=== PATIENT | female | born 1965 | race African-American/Black ===

== ENCOUNTER 2019-01-04 22:27 | Emergency (ER) | payer MEDICAID ==
[~2019-01-04] VITALS: Ht 165.1 cm; Wt 92.1 kg
--- NOTE | 2019-01-04 22:35 | NUR ---
ED Nurse Note: Patient walked in to ER from home due to blood in the urine x 2 days. VSS at this time. collected pt urine sample.
[2019-01-04 22:39] VITALS: BP 147/95
[2019-01-04 23:05] LABS: APPEARANCE,URINE CLOUDY; BILIRUBIN, URINE NEGATIVE (NEGATIVE); GLUCOSE, URINE (UA) NEGATIVE (NEGATIVE); KETONES,URINE 1+ (NEGATIVE); LEUKOCYTE ESTERASE ,URINE 3+ (NEGATIVE); NITRITE,URINE NEGATIVE (NEGATIVE); PH,URINE 5 (4.5-8.0); PROTEIN,URINE 1+ (NEGATIVE); UROBILINOGEN,URINE NORMAL MG/DL (0.0-1.0)
[2019-01-04 23:06] LABS: COLOR,URINE YELLOW
[2019-01-04] MEDS ORDERED: CEPHALEXIN500 MG ORAL (23:28)
[2019-01-04] MEDS ORDERED: Cephalexin 500mg cap ORAL ONE (23:30)
[2019-01-04] MEDS ORDERED: DIFLUCAN100 MG ORAL (23:43)
[2019-01-04 23:49] VITALS: BP 150/87
--- NOTE | 2019-01-04 23:50 | NUR ---
ER DISCHARGE NOTE: Patient is cleared to be discharged per ERMD, pt is aox4, on room air, with stable vital signs. pt was given dc and prescription instructions, pt was able to verbalize understanding, pt id band removed. pt is able to ambulate with steady gait. pt took all belongings.
--- NOTE | 2019-01-05 05:03 | Emergency Room Report ---
History of Present Illness General Chief Complaint: Female Urogenital Problems Source: Patient Present Illness HPI This is a 53-year-old female presents after increased dysuria as well as urinary frequency. She reports having increased bleeding. She denies any fever. She states she had previous total hysterectomy. She denies any vomiting or chills. She denies any severe flank pain. She reports having onset of symptoms for the past few days gradual onset.She had noticed some increased discoloration when she was wiping. Allergies: Coded Allergies: SULFAMETHOXAZOLE (Verified Allergy, Unknown, 01/04/19) TRIMETHOPRIM (Verified Allergy, Unknown, 01/04/19) Patient History Past Medical History: see triage record Now: No Reviewed Nursing Documentation: PMH: Agreed; PSxH: Agreed Review of Systems All Other Systems: negative except mentioned in HPI Physical Exam Vital Signs Date Time Temp Pulse Resp B/P (MAP) Pulse Ox O2 Delivery O2 Flow Rate FiO2 01/04/19 22:32 98.4 72 20 147/95 (112) 96 Room Air General Appearance: well appearing, no apparent distress, alert, GCS 15 Head: normocephalic, atraumatic ENT: hearing grossly normal, normal voice Neck: full range of motion, supple Respiratory: lungs clear, normal breath sounds, no respiratory distress, speaking full sentences Cardiovascular #1: normal inspection, normal peripheral pulses, regular rate, rhythm, no edema Gastrointestinal: normal inspection, non tender, soft Genitourinary: other - slight vaginal discharge, no cva tenderness Neurologic: normal inspection, alert, oriented x3, responsive, 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 Differential diagnosis included but was not limited to vaginitis, urinary tract infection, kidney stone, urethral prolapse among others. Patient has a benign exam. She has had previous total hysterectomy. Urinalysis appears to show some UTI. Patient will be given oral antibiotics. Patient was advised to follow up with her doctor due to bleeding. She is to return if worse. Labs Test 01/04/19 22:40 Urine Color Yellow Urine Appearance Cloudy Urine pH 5 (4.5-8.0) Urine Specific [place] 1.020 (1.005-1.035) Urine Protein 1+ (NEGATIVE) Urine Glucose (UA) Negative (NEGATIVE) Urine Ketones 1+ (NEGATIVE) Urine Blood 5+ (NEGATIVE) Urine Nitrite Negative (NEGATIVE) Urine Bilirubin Negative (NEGATIVE) Urine Urobilinogen Normal MG/DL (0.0-1.0) Urine Leukocyte Esterase 3+ (NEGATIVE) Urine RBC 15-20 /HPF (0 - 2) Urine WBC Tntc /HPF (0 - 2) Urine Squamous Epithelial Cells Many /LPF (NONE/OCC) Urine Bacteria Few /HPF (NONE) Last Vital Signs Date Time Temp Pulse Resp B/P (MAP) Pulse Ox O2 Delivery O2 Flow Rate FiO2 01/04/19 23:49 98.6 77 18 150/87 99 Room Air Status: improved Disposition: HOME, SELF-CARE Condition: Stable Scripts Fluconazole* (DIFLUCAN*) 100 Mg Tablet 100 MG ORAL DAILY for 1 Day, #1 TAB Prov: Jose A Reynoso MD 01/04/19 Cephalexin* (KEFLEX*) 500 Mg Capsule 500 MG ORAL EVERY 6 HOURS, #28 CAP Prov: Jose A Reynoso MD 01/04/19 Referrals: NON PHYSICIAN (PCP) Patient Instructions: Urinary Tract Infection Additional Instructions: Follow up with your doctor for recheck. Jose A Reynoso MD Jan 05, 2019 05:03
== END 2019-01-04 23:50 | disposition home or self-care (01) ==
LOC: EMR 22:48
DX: N39.0 Urinary tract infection, site not specified (principal); Z88.2 Allergy status to sulfonamides; Z88.8 Allergy status to other drugs, medicaments and biological substances
CPT/HCPCS: 81003; 87086; 87181; 99283

== ENCOUNTER 2019-03-03 19:02 | Emergency (ER) | payer MEDICAID ==
[~2019-03-03] VITALS: Ht 165.1 cm; Wt 93.0 kg
[~2019-03-03 19:02] MED LIST: CEPHALEXIN500 MG ORAL; DIFLUCAN100 MG ORAL
[2019-03-03] MEDS ORDERED: NKM (19:12)
[2019-03-03 19:30] VITALS: BP 150/86
--- NOTE | 2019-03-03 19:30 | NUR ---
ED Nurse Note: Recieved report to resume care, pt sitting in chairs, here from home with c/o sore throat for 3 days, denies fevers, nausea, vomiting, or any other complaints, no cp, no sob, pt waiting to be seen by md, will resume care as ordered and closely montior.
[2019-03-03] MEDS ORDERED: AMOXICILLIN500 MG ORAL (19:43)
--- NOTE | 2019-03-03 19:43 | Emergency Room Report ---
History of Present Illness General Chief Complaint: Sore Throat Source: Patient Present Illness HPI 53-year-old female with no symptom past history is complaining of 3 days of a 10 out of 10 throat and tonsil enlargement. Denies fever and chills, nausea vomiting, cough and congestion. Complains of swollen neck however denies neck stiffness, photophobia, headache, dizziness. Has not taken medication for symptom relief. Is up-to-date with her immunization. Denies chest pain, shortness of breath, palpitation, no other associated symptoms. Allergies: Coded Allergies: SULFAMETHOXAZOLE (Verified Allergy, Unknown, 01/04/19) TRIMETHOPRIM (Verified Allergy, Unknown, 01/04/19) Patient History Past Medical History: see triage record Past Surgical History: unable to obtain Pertinent Family History: none Last Menstrual Period: HYSTERECTOMY 2015 Now: No Immunizations: UTD Reviewed Nursing Documentation: PMH: Agreed; PSxH: Agreed Nursing Documentation-PMH Past Medical History: No Stated History Review of Systems All Other Systems: negative except mentioned in HPI Physical Exam Vital Signs Date Time Temp Pulse Resp B/P (MAP) Pulse Ox O2 Delivery O2 Flow Rate FiO2 03/03/19 19:10 99.1 84 16 150/86 (107) 98 Room Air Sp02 EP Interpretation: reviewed, normal General Appearance: no apparent distress, alert, GCS 15, non-toxic Head: normocephalic, atraumatic Eyes: bilateral eye normal inspection, bilateral eye PERRL ENT: TMs + canals normal, uvula midline, tonsillar swelling, pharyngeal erythema, tonsillar exudate Neck: full range of motion, supple/symm/no masses, other - Anterior cervical lymphadenopathy Respiratory: chest non-tender, lungs clear, normal breath sounds, no wheezing, speaking full sentences Cardiovascular #1: regular rate, rhythm, no edema, no murmur, normal capillary refill Gastrointestinal: normal inspection, normal bowel sounds, non tender, soft, no mass Genitourinary: no CVA tenderness Musculoskeletal: normal inspection, back normal, digits/nails normal Neurologic: alert, oriented x3, responsive, motor strength/tone normal, sensory intact, speech normal Psychiatric: normal inspection, judgement/insight normal Skin: no rash Lymphatic: adenopathy - Anterior cervical Medical Decision Making PA Attestation Diagnosis and treatment plans were reviewed and discussed with my supervising physician Dr. Hernandez Diagnostic Impression: Primary Impression: Tonsillitis with exudate ER Course 53-year-old female with no symptom past history is complaining of 3 days of a 10 out of 10 throat and tonsil enlargement. Denies fever and chills, nausea vomiting, cough and congestion. Complains of swollen neck however denies neck stiffness, photophobia, headache, dizziness. Has not taken medication for symptom relief. Is up-to-date with her immunization. Denies chest pain, shortness of breath, palpitation, no other associated symptoms. Ddx considered but are not limited to: strep pharyngitis, URI, tonsillitis, peritonsillar abscess, influneza Vital signs: are WNL, pt. is afebrile H&PE are most consistent with: Tonsillitis with exudate ORDERS: Amoxicillin ED INTERVENTIONS: None required at this time. DISCHARGE: At this time pt. is stable for d/c to home. Will provide printed patient care instructions, and any necessary prescriptions. Care plan and follow up instructions have been discussed with the patient prior to discharge. Take medication as directed follow-up with primary care provider if worsening symptoms return to the emergency room patient was also given Diflucan as she reports that she gets yeast infection with antibiotics. Advised her to start taking it only if this infection develops. Last Vital Signs Date Time Temp Pulse Resp B/P (MAP) Pulse Ox O2 Delivery O2 Flow Rate FiO2 03/03/19 19:10 99.1 84 16 150/86 (107) 98 Room Air Disposition: HOME, SELF-CARE Condition: Stable Scripts Fluconazole (FLUCONAZOLE) 100 Mg Tablet 150 MG ORAL ONCE for 1 Day, #1 TAB 0 Refills Prov: Whit Jo 03/03/19 Amoxicillin* (AMOXIL*) 500 Mg Capsule 500 MG ORAL EVERY 12 HOURS for 10 Days, #20 CAP Prov: Whit Jo 03/03/19 Patient Instructions: Strep Throat, Tonsillitis Additional Instructions: Take medication as directed follow-up with your primary care provider. Take the Diflucan only if you start having a yeast infection Whit Jo Mar 03, 2019 19:43
[2019-03-03 20:15] VITALS: BP 150/86
[2019-03-03] MEDS ORDERED: FLUCONAZOLE100 MG ORAL (20:15)
--- NOTE | 2019-03-03 20:15 | NUR ---
ER DISCHARGE NOTE: Patient is cleared to be discharged per ERMD, pt is aox4, on room air, with stable vital signs. pt was given dc and prescription instructions, pt was able to verbalize understanding, pt id band removed without complications. pt is able to ambulate with steady gait. pt took all belongings.
== END 2019-03-03 20:15 | disposition home or self-care (01) ==
LOC: EMR 19:44
DX: J03.90 Acute tonsillitis, unspecified (principal); Z90.710 Acquired absence of both cervix and uterus; Z88.1 Allergy status to other antibiotic agents; Z88.2 Allergy status to sulfonamides
CPT/HCPCS: 99282

== ENCOUNTER 2019-03-31 21:17 | Emergency (ER) | payer MEDICAID ==
[~2019-03-31] VITALS: Ht 165.1 cm; Wt 91.6 kg
[~2019-03-31 21:17] MED LIST changes: +AMOXICILLIN500 MG ORAL; +FLUCONAZOLE100 MG ORAL; +NKM
[2019-03-31 21:28] VITALS: BP 150/80
--- NOTE | 2019-03-31 21:29 | NUR ---
ED Nurse Note: PT walked in to ED for C/O redness, swelling, itchiness to right arm since 4 dys ago. area is warm to touch and is hardened. pt stated she has been applying "blue star Ointment" but is ineffective.
[2019-03-31] MEDS ORDERED: DiphenhydrAMINE & Zinc 28g Cream TOPIC ONE (21:45)
[2019-03-31] MEDS ORDERED: Hydrocortisone 2.5% Oint 30gm TOPIC ONE (21:45)
[2019-03-31] MEDS ORDERED: CEPHALEXIN500 M1 ORAL (21:46)
[2019-03-31] MEDS ORDERED: DIFLUCAN200 MG ORAL (21:46)
--- NOTE | 2019-03-31 21:46 | Emergency Room Report ---
History of Present Illness General Chief Complaint: Skin Rash/Abscess Source: Patient Present Illness HPI 53 year old female presents with itchy rash right upper arm, no aggravating or alleviating factors, severity is mild, symptoms started 4 days patient reports that she saw the pharmacist today who told her to come to the ED, she denies any aggravating or relieving factors severity is mild, no fevers no chills, patient presents for evaluation. Allergies: Coded Allergies: SULFAMETHOXAZOLE (Verified Allergy, Unknown, 01/04/19) TRIMETHOPRIM (Verified Allergy, Unknown, 01/04/19) Patient History Past Medical History: see triage record Last Menstrual Period: hysterectomy 2014 Reviewed Nursing Documentation: PMH: Agreed; PSxH: Agreed Review of Systems All Other Systems: negative except mentioned in HPI Physical Exam Vital Signs Date Time Temp Pulse Resp B/P (MAP) Pulse Ox O2 Delivery O2 Flow Rate FiO2 03/31/19 21:19 98.4 65 16 156/80 (105) 97 Room Air General Appearance: well appearing, no apparent distress Head: normocephalic, atraumatic ENT: hearing grossly normal, normal voice Neck: full range of motion, supple Respiratory: no respiratory distress, speaking full sentences Neurologic: alert, normal gait Psychiatric: mood/affect normal Skin: other - Upper arm: 2 urticarial rashes Medical Decision Making Diagnostic Impression: Primary Impression: Urticaria Additional Impression: Insect bite Qualified Codes: S40.861A - Insect bite (nonvenomous) of right upper arm, initial encounter; W57.XXXA - Bitten or stung by nonvenomous insect and other nonvenomous arthropods, initial encounter ER Course 53-year-old female presents most likely with an insect bite, with urticarial reaction, will provide patient with Benadryl cream as well as hydrocortisone cream here in the ED, will provide antibiotics instructed patient only take antibiotics on the second day if no improvement in rash, area was marked with a pen Follow-up with PCP Last Vital Signs Date Time Temp Pulse Resp B/P (MAP) Pulse Ox O2 Delivery O2 Flow Rate FiO2 03/31/19 21:19 98.4 65 16 156/80 (105) 97 Room Air Disposition: HOME, SELF-CARE Condition: Stable Scripts Fluconazole* (DIFLUCAN*) 200 Mg Tablet 200 MG ORAL DAILY, #1 TAB 0 Refills Prov: Panfilo Hernandez MD 03/31/19 Cephalexin* (KEFLEX*) 500 Mg Tablet 500 MG ORAL EVERY 6 HOURS, #28 CAP Prov: Panfilo Hernandez MD 03/31/19 Referrals: [facility] Patient Instructions: Hives, Cdoy-ko-Roxy, Insect Bite, [id number] Additional Instructions: The patient was provided with discharge instructions, notified to follow-up with a primary care doctor and or specialist in the next 24-48 hours, and to return to the ED if they have worsening of their symptoms. Please note that this report is being documented using DRAGON technology. This can lead to erroneous entry secondary to incorrect interpretation by the dictating instrument. Panfilo Hernandez MD Mar 31, 2019 21:46
[2019-03-31 22:01] VITALS: BP 148/84
== END 2019-03-31 22:01 | disposition home or self-care (01) ==
LOC: EMR 21:40
DX: L50.9 Urticaria, unspecified (principal); S40.861A Insect bite (nonvenomous) of right upper arm, initial encounter; W57.XXXA Bitten or stung by nonvenomous insect and other nonvenomous arthropods, initial encounter; Y93.9 Activity, unspecified; Y92.9 Unspecified place or not applicable; Z90.710 Acquired absence of both cervix and uterus; Z88.2 Allergy status to sulfonamides; Z88.1 Allergy status to other antibiotic agents
CPT/HCPCS: 99282